=== PATIENT | male | born 1995 | race Caucasian/White ===

== ENCOUNTER → 2016-07-17 | Outpatient (CLI) | payer BC ==
[~2016-07-17] MED LIST: AUGMENTIN875 M1 PO; BAYER CHEWABLE81 MG PO; METOPROLOL TART25 MG PO
--- NOTE | ~2016-07-17 | CT57 ---
[facility] A Service of [facility] RADIOLOGY TEXT RESULTS PATIENT: ROBERTO CARLOS MERIDA LOCATION: [facility] : 93 UNIT #: [id number] AGE: [address]: Anayeli Gayle MD SEX: M ORDER DR: [id number] [facility] [address] [place], [place] [address] [id number] O MR#: [id number] Acc #: [id number] NAME: ROBERTO CARLOS MERIDA : 1995 SEX: M STUDY DATE/TIME: 07/17/2016 14:15 UNIT: [facility] ROOM: STUDY DESCRIPTION: CT Chest Wo Cont Attending Physician: Anayeli Gayle M.D. Referring Physician: Anayeli Gayle M.D. Ordering Physician: Anayeli Gayle M.D. Primary Care Physician: Rosana Bravo M.D. MEDICAL IMAGING REPORT This report is preliminary unless electronic signature is present EXAM CT chest without contrast INDICATION Pneumonia since April 2016. Followup. PROCEDURE Noncontrast CT of the chest COMPARISON 04/19/[address] exam was performed with one or more of the following radiation dose reduction techniques: automatic exposure control, adjustment of mA and/or kV according to patient size, and iterative reconstruction. FINDINGS Dense bilateral opacities have resolved. There is no current dense consolidation. No pleural fluid or pneumothorax. No adenopathy. No acute findings in the included upper abdomen. No aggressive appearing bone lesion. IMPRESSION Interval resolution of bilateral pneumonia. There is no dense consolidation on the current study. Dictated by... Gene Tucker M.D. THIS IS AN ELECTRONICALLY VERIFIED REPORT Gene Tucker M.D. at 07/18/2016 5:05 PM ADARSH/kellee [facility] A Service [facility] RADIOLOGY TEXT RESULTS PATIENT: ROBERTO CARLOS MERIDA [facility]ATION: [facility] [birth year] UNIT #: [id number] AGE: [address]: Anayeli Gayle MD SEX: M ORDER DR: TD: 07/18/2016 10:19 JOB #: [id number] MEDICAL IMAGING REPORT COPY
== END | disposition home or self-care (01) ==
LOC: CCAT 13:53
DX: J18.9 Pneumonia, unspecified organism (principal)
CPT/HCPCS: 71250